=== PATIENT | female | born 1990 | race African-American/Black ===

== ENCOUNTER 2023-06-08 08:30 | Emergency (ER) | payer MEDICAID ==
[~2023-06-08] VITALS: Ht 172.7 cm; Wt 63.6 kg
[2023-06-08 09:25] VITALS: BP 136/78; PULSE 96; RESP 18; TEMP 99.8; O2SAT 99
[2023-06-08] MEDS: KETOROLAC TROMETH 60MG/2ML VIAL IM ONE (10:01)
[2023-06-08] MEDS ORDERED: NAPR-746 PO (10:35)
[2023-06-08] MEDS ORDERED: DOCU-94 PO (10:35)
== END 2023-06-08 10:50 | disposition home or self-care (01) ==
LOC: ER 08:30 → EDBD 08:30 → ER 10:50
DX: G89.18 Other acute postprocedural pain (principal); M25.561 Pain in right knee; Z98.890 Other specified postprocedural states; Z79.899 Other long term (current) drug therapy
CPT/HCPCS: 93971; 96372; 99285; J1885